=== PATIENT | male | born 1955 | race Caucasian/White ===

== ENCOUNTER → 2017-02-22 | Outpatient (CLI) | payer OTHER ==
[~2017-02-22] VITALS: Ht 180.3 cm; Wt 88.0 kg
[~2017-02-22] MED LIST: B COMPLETE1 EACH PO; CELEBREX200 MG PO; GLUCOSAMINE &1 EAC1 PO; LISINOPRIL20 MG PO; ODOR FREE GARL1 EACH PO; TURMERIC500 MG PO; VITAMIN D31000 UNIT PO; [UNRECOGNIZED DRUG - OTHER]; [UNRECOGNIZED DRUG - OTHER] PO; [UNRECOGNIZED DRUG - OTHER] PO
== END | disposition home or self-care (01) ==
LOC: AMB 09:20
PROC: 0DJD8ZZ Inspection of Lower Intestinal Tract, Via Natural or Artificial Opening Endoscopic (ICD-10-PCS; principal; 2017-02-22)
DX: Z12.11 Encounter for screening for malignant neoplasm of colon (principal); K64.8 Other hemorrhoids; I10 Essential (primary) hypertension; M19.90 Unspecified osteoarthritis, unspecified site
CPT/HCPCS: 93005